=== PATIENT | female | born 1985 | race American Indian/Alaskan Native ===

== ENCOUNTER 2021-03-04 18:28 | Emergency (ER) | payer SELFPAY | END 2021-03-04 18:33 | disposition left against medical advice (07) | LOC: ED 18:28 | DX: O26.899 Other specified pregnancy related conditions, unspecified trimester (principal); R22.43 Localized swelling, mass and lump, lower limb, bilateral; Z53.21 Procedure and treatment not carried out due to patient leaving prior to being seen by health care provider; Z3A.00 Weeks of gestation of pregnancy not specified ==